=== PATIENT | male | born 1970 | race American Indian/Alaskan Native ===

== ENCOUNTER 2017-02-25 14:21 | Inpatient (IN) | payer MEDICAID ==
[2017-02-25 14:27] VITALS: BMI 33.5
--- NOTE | 2017-02-25 14:58 | ED PDOC ---
Arrival/HPI - General Chief Complaint: Abdominal Pain Time Seen by Provider: 02/25/17 14:51 Historian: Patient - History of Present Illness Narrative History of Present Illness (Text): 02/25/17 14:53 Rehan Rodriguez is a 46 year old male, with a history of hypertension, presents to the emergency department complaining of lower abdominal pressure associated with constipation since waking up today morning. Reports he passed some loose water-like stool in the morning, but did not have a normal bowel movement. States he used a suppository for no relief. Denies any fever, chills, headache, chest pain, shortness of breath, nausea, vomiting, diarrhea, urinary symptoms, or any other complaints at this time. Time/Duration: Other (today morning ) Symptom Onset: Gradual Symptom Course: Unchanged Severity Level: Mild Activities at Onset: Light Past Medical History - Provider Review Nursing Documentation Reviewed: Yes - Infectious Disease Hx of Infectious Diseases: None - Cardiac Hx Cardiac Disorders: Yes Hx Hypertension: Yes (non compliant) - Pulmonary Hx Respiratory Disorders: No - Neurological Hx Neurological Disorder: No - HEENT Hx HEENT Disorder: No - Renal Hx Renal Disorder: No - Endocrine/Metabolic Hx Endocrine Disorders: No - Hematological/Oncological Hx Blood Disorders: No - Integumentary Hx Dermatological Disorder: No - Musculoskeletal/Rheumatological Hx Musculoskeletal Disorders: No - Gastrointestinal Hx Gastrointestinal Disorders: Yes Hx Gastroesophageal Reflux: Yes - Genitourinary/Gynecological Hx Genitourinary Disorders: No - Psychiatric Hx Psychophysiologic Disorder: No Hx Substance Use: No - Anesthesia Hx Anesthesia: No Family/Social History - Physician Review Nursing Documentation Reviewed: Yes Family/Social History: No Known Family HX Smoking Status: Never Smoked Hx Alcohol Use: No Hx Substance Use: No Allergies/Home Meds Allergies/Adverse Reactions: Allergies No Known Allergies Allergy (Verified 02/25/17 14:27) Home Medications: Home Meds Medication Instructions Recorded Confirmed Omeprazole Magnesium [Prilosec] 10 mg PO DAILY 11/06/16 02/25/17 Physical Exam - Physical Exam Narrative Physical Exam (Text): - Review of Systems Constitutional: Normal. absent: Fatigue, Weight Change, Fevers Eyes: Normal ENT: Normal Respiratory: Normal absent: SOB, Cough, Sputum Cardiovascular: Normal absent: Chest pain, Palpitations, Syncope Gastrointestinal: Present: Lower abdominal pressure, Constipation. absent: Diarrhea, Nausea, Vomiting Genitourinary: Normal. absent: Dysuria, Frequency, Hematuria Musculoskeletal: Normal. absent: Arthralgias, Back Pain, Neck Pain Skin: Normal Neurological: Normal absent: Focal Weakness Endocrine: Normal Hemo/Lymphatic: Normal Psychiatric: Normal - Physical exam Patient appears age appropriate, speaking full sentences without difficulty - Systems Exam Head: Present: Atraumatic, Normocephalic Pupils: Present: PERRL Extraocular Muscles: Present: EOMI Conjunctiva: Present: Normal Mouth: Present: Moist Mucous Membranes Neck: Present: Normal Range of Motion. No: MIDLINE TENDERNESS, Paraspinal Tenderness Respiratory/Chest: Present: Clear to Auscultation, Good Air Exchange. No: Respiratory Distress, Accessory Muscle Use, Tachypneic Cardiovascular: Present: Regular Rate and Rhythm, Normal S1, S2, Peripheral Pulses Present. No: Murmurs Abdomen: Present: Normal Bowel Sounds, No: Tenderness, Peritoneal Signs, Rebound, Guarding, Distention Back: Present: Normal Inspection. No: Midline Tenderness, Paraspinal Tenderness Upper Extremity: Present: Normal Inspection. No: Cyanosis, Edema Lower Extremity: Present: Normal Inspection. No: Edema Neurological: Present: GCS=15, Speech Normal, cranial nerves II through XII fully intact with no cerebellar abnormality, neuro-sensory fully intact. No focal neurological deficits. Skin: Present: Warm, Dry, Normal Color. No: Rashes Lymphatic: Present: OX3, NI, NC Psychiatric: Present: Alert, Oriented x 3, Normal Insight, Normal Concentration Vital Signs Reviewed: Yes Vital Signs Temp Pulse Resp BP Pulse Ox 02/25/17 14:23 98.1 F 82 16 163/97 H 97 Temperature: Afebrile Blood Pressure: Hypertensive Pulse: Regular Respiratory Rate: Normal Appearance: Positive for: Well-Appearing, Non-Toxic, Comfortable Pain Distress: None Mental Status: Positive for: Alert and Oriented X 3 Medical Decision Making ED Course and Treatment: 02/25/17 15:04 Impression: A 46 year old male who presents to the emergency department complaining of abdominal pressure and constipation since today morning. On PE, the abdomen is soft, non-distended and non-tender, unremarkable findings. Plan: -- CT abdomen pelvis -- Labs -- Urinalysis -- Reassess and disposition Progress Notes: PROCEDURE: CT Abdomen and Pelvis without intravenous contrast Tack Coverer : Edilberto Giles MD IMPRESSION: 9.4 x 8.8 centimeter central deep pelvic mass with internal necrosis, with mass effect upon the sigmoid colon which is displaced to the right with luminal narrowing associated abundant stool proximally in the sigmoid colon with infiltration of adjacent fat. The mass is of uncertain etiology. This could be related to the prostate gland or perhaps the serosal lining of the sigmoid ( less likely. Correlation with pelvic MRI with contrast is recommended. Numerous hepatic hypodensities favored to represent cysts. The largest measuring roughly 13 millimeters. Recommend further evaluation either with ultrasound or MRI of the liver with and without contrast. 02/25/17 17:[address] Rosa, accepted pt to her service accepted pt to her service pt aware of and agrees with plan - Lab Interpretations Lab Results: 02/25/17 14:50 02/25/17 14:50 Lab Results 02/25/17 14:50: WBC 7.1 D, RBC 5.33, Hgb 16.1, Hct 45.4, MCV 85.2, MCH 30.2, MCHC 35.5, RDW 13.3, Plt Count 226, MPV 9.6, Gran % 74.8 H, Lymph % (Auto) 17.7 L, [place] % (Auto) 6.6 H, Eos % (Auto) 0.8 L, Baso % (Auto) 0.1, Gran # 5.28, Lymph # 1.3, [place] # 0.5, Eos # 0.1, Baso # 0.01, Sodium 139, Potassium 3.7, Chloride 104, Carbon Dioxide 22, Anion Gap 17, BUN 11, Creatinine 1.0, Est GFR ( Amer) > 60, Est GFR (Non-Af Amer) > 60, Random Glucose 88, Calcium 9.4, Total Bilirubin 0.9, AST 58, ALT 64 H, Alkaline Phosphatase 93, Total Protein 8.5 H, Albumin 4.4, Globulin 4.1, Albumin/Globulin Ratio 1.1, Lipase 119, Urine Color Yellow, Urine Appearance Clear, Urine pH 6.0, Ur Specific [place] 1.020, Urine Protein Negative, Urine Glucose (UA) Negative, Urine Ketones Negative, Urine Blood Negative, Urine Nitrate Negative, Urine Bilirubin Negative, Urine Urobilinogen 0.2, Ur Leukocyte Esterase Negative - RAD Interpretation Radiology Orders: 02/25/17 14:51 ABD & PELVIS W/O PO OR IV CONT [CT] Stat Seed Cleaning Machine Operator: Radiologist - Susanibkasia Statement The provider has reviewed the documentation as recorded by the Juan Garza Provider Attestation: All medical record entries made by the Juan were at my direction and personally dictated by me. I have reviewed the chart and agree that the record accurately reflects my personal performance of the history, physical exam, medical decision making, and the department course for this patient. I have also personally directed, reviewed, and agree with the discharge instructions and disposition. Disposition/Present on Arrival - Present on Arrival Any Indicators Present on Arrival: No History of DVT/PE: No History of Uncontrolled Diabetes: No Urinary Catheter: No History of Decub. Ulcer: No History Surgical Site Infection Following: None - Disposition Have Diagnosis and Disposition been Completed?: Yes Diagnosis: Pelvic mass Disposition: HOSPITALIZED Disposition Time: 17:04 Patient Plan: Admission Condition: FAIR
[2017-02-25 15:09] LABS: ADD MANUAL DIFF? NO
[2017-02-25 15:14] LABS: BASO # 0.01 K/mm3 (0.0-2.0); BASO % 0.1 % (0.0-3.0); EOS # 0.1 (0.0-0.7); EOS % 0.8 % (1.5-5.0); GRAN # 5.28 (1.4-6.5); GRAN % 74.8 % (50.0-68.0); HEMATOCRIT 45.4 % (42.0-52.0); LYMPH # 1.3 (1.2-3.4); LYMPH % 17.7 % (22.0-35.0); MEAN CELL VOLUME 85.2 fL (80.0-105.0); MEAN CORPUSCULAR HEMOGLOBIN 30.2 pg (25.0-35.0); MEAN CORPUSCULAR HGB CONC 35.5 g/dl (31.0-37.0); MEAN PLATELET VOLUME 9.6 fl (7.0-11.0); MONO # 0.5 (0.1-0.6); MONO % 6.6 % (1.0-6.0); PLATELET COUNT 226 10^3/uL (120.0-450.0); RED CELL DISTRIBUTION WIDTH 13.3 % (11.5-14.5); WHITE BLOOD COUNT 7.1 10^3/ul (4.5-11.0)
[2017-02-25 15:25] LABS: ALB/GLOB RATIO 1.1 (1.1-1.8); ALKALINE PHOSPHATASE 93 U/L (38-133); ALT/SGPT 64 U/L (7-56); AST/SGOT 58 U/L (15-59); BILIRUBIN,TOTAL 0.9 mg/dL (0.2-1.3); BLOOD UREA NITROGEN 11 mg/dL (7-21); CALCIUM 9.4 mg/dL (8.4-10.5); CARBON DIOXIDE 22 mmol/L (21-33); CHLORIDE 104 mmol/L (98-107); GFR AFRICAN-AMERICAN > 60; GLUCOSE,RANDOM 88 mg/dL (70-110); LIPASE 119 U/L (23-300); POTASSIUM 3.7 mmol/L (3.6-5.0); SODIUM 139 mmol/L (132-148); TOTAL PROTEIN 8.5 g/dL (5.8-8.3)
[2017-02-25 15:30] LABS: URINE BILIRUBIN NEGATIVE (NEGATIVE); URINE BLOOD NEGATIVE (NEGATIVE); URINE GLUCOSE (UA) NEGATIVE (NEGATIVE); URINE KETONE NEGATIVE (NEGATIVE); URINE LEUKOCYTE ESTERASE NEGATIVE Leu/uL (NEGATIVE); URINE PROTEIN NEGATIVE mg/dL (<30 mg/dL); URINE UROBILINOGEN 0.2 E.U./dL (<1 E.U./dL)
[2017-02-25 15:35] LABS: URINE APPEARANCE CLEAR (CLEAR); URINE COLOR YELLOW (YELLOW)
--- NOTE | 2017-02-25 16:40 | CT ---
PROCEDURE: CT Abdomen and Pelvis without intravenous contrast HISTORY: constipation, lower abd pressure COMPARISON: None. TECHNIQUE: Technique. Contrast Dose: Radiation dose: Total exam DLP = 756 mGy-cm. This CT exam was performed using one or more of the following dose reduction techniques: Automated exposure control, adjustment of the mA and/or kV according to patient size, and/or use of iterative reconstruction technique. FINDINGS: LOWER THORAX: Unremarkable. LIVER: Numerous hepatic hypodensities favored to represent cysts. The largest measuring roughly 13 millimeters. Recommend further evaluation either with ultrasound or MRI of the liver with and without contrast. GALLBLADDER AND BILE DUCTS: Unremarkable. PANCREAS: Unremarkable. No gross lesion or ductal dilatation. SPLEEN: Unremarkable. ADRENALS: Unremarkable. No mass. KIDNEYS AND URETERS: Unremarkable. No hydronephrosis. No solid mass. VASCULATURE: Unremarkable. No aortic aneurysm. BOWEL: No bowel obstruction,, there is abundant stool in the sigmoid colon with infiltration of the adjacent fat. There is severe narrowing of the rectosigmoid junction secondary to an extrinsic mass in the central pelvis with internal necrosis measuring 9.4 x 8.8 centimeters. The rectosigmoid junction is displaced to the right of this mass. APPENDIX: Unremarkable. Normal appendix. PERITONEUM: Unremarkable. No free fluid. No free air. LYMPH NODES: Unremarkable. No enlarged lymph nodes. BLADDER: Unremarkable. REPRODUCTIVE: Unremarkable. BONES: No acute fracture. OTHER FINDINGS: None. IMPRESSION: 9.4 x 8.8 centimeter central deep pelvic mass with internal necrosis, with mass effect upon the sigmoid colon which is displaced to the right with luminal narrowing associated abundant stool proximally in the sigmoid colon with infiltration of adjacent fat. The mass is of uncertain etiology. This could be related to the prostate gland or perhaps the serosal lining of the sigmoid (less likely. Correlation with pelvic MRI with contrast is recommended. Numerous hepatic hypodensities favored to represent cysts. The largest measuring roughly 13 millimeters. Recommend further evaluation either with ultrasound or MRI of the liver with and without contrast.
[2017-02-25] MEDS ORDERED: POLYETHYLENE GLYCOL 3350 17 GM/Dose PACKET PO STA (17:42)
--- NOTE | 2017-02-25 17:56 | CP.PCM.HP ---
<Franny Mccallum - Last Filed: 02/25/17 17:49> History of Present Illness - History of Present Illness History of Present Illness: CC: abdominal mass 46 year old male with past medical history of HTN and GERD presents to ED with abdominal fullness and constipation that started this morning. Patient states that he woke up this morning felt a fullness in his suprapupic and lower abdomen. Patient tried to have a BM this morning but was unable. He passed some mucousy discharge but no stool. Patient also tried an enema but only had very little water stool come out. Patient states that he has regular bowel movements. For last couple of months, he has been going every other day. Patient's last bowel movement was 2 days ago, normal in nature. He is passing gas. Patient denies having any dysuria or hematuria. Patient does c/o of increased urinary frequency and nocturia. Abd/pelvis Ct done in ED showed a 9.4x8.8 cm central deep pelvic mass with internal necrosis. Pt denies having any CP, SOB, abd pain, N/V, weight changes, fatigue. PMHx: stated above Sx: denies Medications: Prilosec 10 mg po qd prn Social: denies tob, ETOH or drug use PMD: Dr. Pearl Fhx: father prostate ca. DM, CAD Present on Admission - Present on Admission Any Indicators Present on Admission: No Review of Systems - Review of Systems All systems: reviewed and no additional remarkable complaints except Past Patient History - Infectious Disease Hx of Infectious Diseases: None - Past Social History Smoking Status: Never Smoked Chewing Tobacco Use: No Cigar Use: No Alcohol: None Drugs: Denies - CARDIAC Hx Cardiac Disorders: Yes Hx Hypertension: Yes (non compliant) - PULMONARY Hx Respiratory Disorders: No - NEUROLOGICAL Hx Neurological Disorder: No - HEENT Hx HEENT Problems: No - RENAL Hx Chronic Kidney Disease: No - ENDOCRINE/METABOLIC Hx Endocrine Disorders: No - HEMATOLOGICAL/ONCOLOGICAL Hx Blood Disorders: No - INTEGUMENTARY Hx Dermatological Problems: No - MUSCULOSKELETAL/RHEUMATOLOGICAL Hx Musculoskeletal Disorders: No - GASTROINTESTINAL Hx Gastrointestinal Disorders: Yes Hx Gastroesophageal Reflux: Yes - GENITOURINARY/GYNECOLOGICAL Hx Genitourinary Disorders: No - PSYCHIATRIC Hx Psychophysiologic Disorder: No Hx Substance Use: No - SURGICAL HISTORY Hx Surgeries: No - ANESTHESIA Hx Anesthesia: No Meds Home Medications: Home Medication List Medication Instructions Recorded Confirmed Type Docusate [Colace] 100 mg PO BID #60 cap 02/28/17 Rx amLODIPine [Norvasc] 10 mg PO DAILY #30 tab 02/28/17 Rx Allergies/Adverse Reactions: Allergies Allergy/AdvReac Type Severity Reaction Status Date / Time No Known Allergies Allergy Verified 02/25/17 14:27 Physical Exam - Constitutional Appears: Non-toxic, No Acute Distress - Head Exam Head Exam: ATRAUMATIC, NORMOCEPHALIC - Eye Exam Eye Exam: EOMI, PERRL - ENT Exam ENT Exam: Mucous Membranes Moist - Respiratory Exam Respiratory Exam: Clear to Auscultation Bilateral, NORMAL BREATHING PATTERN. absent: Rales, Rhonchi, Wheezes - Cardiovascular Exam Cardiovascular Exam: REGULAR RHYTHM, +S1, +S2. absent: Diastolic murmur, Gallop , Rubs, Systolic Murmur - GI/Abdominal Exam GI & Abdominal Exam: Normal Bowel Sounds, Soft. absent: Distended, Firm, Guarding, Organomegaly, Rigid, Tenderness - Extremities Exam Extremities exam: Negative for: pedal edema, tenderness - Neurological Exam Neurological exam: Alert, Oriented x3 - Psychiatric Exam Psychiatric exam: Normal Affect, Normal Mood - Skin Skin Exam: Dry, Intact, Normal Color, Warm Results - Vital Signs Recent Vital Signs: Last Vital Signs Temp 98.1 F 02/25/17 14:23 Pulse 82 02/25/17 14:23 Resp 16 02/25/17 14:23 BP 163/97 H 02/25/17 14:23 Pulse Ox 97 02/25/17 14:23 - Labs Result Diagrams: 02/25/17 14:50 02/25/17 14:50 Labs: Laboratory Results - last 24 hr 02/25/17 14:50 WBC 7.1 D RBC 5.33 Hgb 16.1 Hct 45.4 MCV 85.2 MCH 30.2 MCHC 35.5 RDW 13.3 Plt Count 226 MPV 9.6 Gran % 74.8 H Lymph % (Auto) 17.7 L [place] % (Auto) 6.6 H Eos % (Auto) 0.8 L Baso % (Auto) 0.1 Gran # 5.28 Lymph # 1.3 [place] # 0.5 Eos # 0.1 Baso # 0.01 Sodium 139 Potassium 3.7 Chloride 104 Carbon Dioxide 22 Anion Gap 17 BUN 11 Creatinine 1.0 Est GFR ( Amer) > 60 Est GFR (Non-Af Amer) > 60 Random Glucose 88 Calcium 9.4 Total Bilirubin 0.9 AST 58 ALT 64 H Alkaline Phosphatase 93 Total Protein 8.5 H Albumin 4.4 Globulin 4.1 Albumin/Globulin Ratio 1.1 Lipase 119 Urine Color Yellow Urine Appearance Clear Urine pH 6.0 Ur Specific [place] 1.020 Urine Protein Negative Urine Glucose (UA) Negative Urine Ketones Negative Urine Blood Negative Urine Nitrate Negative Urine Bilirubin Negative Urine Urobilinogen 0.2 Ur Leukocyte Esterase Negative Assessment & Plan - Assessment and Plan (Free Text) Assessment: 46 year old male with past medical history of HTN and GERD is admitted for central deep pelvic mass 9.4x8.[address] report is as stated: central deep pelvic mass with internal area of necrosis, mass effect upon sigmoid colon displaced to right with luminal narrowing with abundant stool in proximal sigmoid; hepatic hypodensities represent cyst with largest being 13 mm. Blood work shows normal LFTs and lipase. UA is negative. 1. Pelvic mass - Will get MRI with/without contrast of abd and pelvis. - Will consult GI, Dr. Perez - Will check PSA, CEA and CA 19-9 tumor markers for prostate and colon cancer, respectively - Colace and miralax for constipation - Tylenol prn for pain - Zofran prn for nausea - Liquid diet - will check stool occult - Will check EKG and CXR 2. HTN - Norvasc 5 mg PO qd 3. GERD - protonix IVP qd 4. Prophylaxis - SCDS Case discussed with attending Dr. Rosa - Date & Time Date: 02/25/17 Time: 17:57 <Aster Rosa - Last Filed: 03/04/17 11:07> Results - Vital Signs Recent Vital Signs: Last Vital Signs Temp 98.3 F 02/28/17 16:00 Pulse 66 02/28/17 16:00 Resp 20 02/28/17 16:00 BP 137/65 02/28/17 16:00 Pulse Ox 96 02/28/17 16:00 - Labs Result Diagrams: 02/28/17 07:30 02/28/17 07:30 Attending/Attestation - Attestation I have personally seen and examined this patient.: Yes I have fully participated in the care of the patient.: Yes I have reviewed all pertinent clinical information: Yes Notes (Text): 03/04/17 10:48 Attending note: patient is a 46 year old male with past medical history of HTN and GERD presents to ED with abdominal fullness and constipation.Patient states that he woke up this morning felt a fullness in his suprapupic and lower abdomen. Patient had constipation for the week. Patient does not follow up with PMD regularly. CT showed pelvic mass with necrosis possibly from prostate vs colon. MRI ordered. GI evaluation requested. Reviewed the CT scan with IR for possible biopsy tomorrow. upon discharge patient will follow up with Dr. Pearl. 03/04/17 11:04 03/04/17 11:07
--- NOTE | 2017-02-26 07:55 | CP.PCM.CON ---
<Aicha Hull - Last Filed: 02/26/17 12:12> History of Present Illness - History of Present Illness History of Present Illness: Gastroenterology Fellow/PGY4 Consult Note 46 year old male with history of Hypertension and Constipation presenting with abdominal pain. Patient describes attempt to have a bowel movement without relief leading to severe bilateral lower abdomen pain associated with bloating , pain scale 9/10. He attempted to use a Dulcolax suppository resulting in minimal watery stools with small particles. He notes last bowel movement being two days ago with normal bowel habits of every two to three days and note of intermittent hard stools with straining. He denies recent travel, sick contacts , and last antibiotics in November ER visit for concern of candice an STD with negative G&C. He jokes that he developed pain and constipation due to all the donuts he ate last week. Denies fever, chills, sweats, loss of appetite, weight loss, melena, hematochezia, diarrhea, nausea, vomiting, hematemesis, indigestion, or heartburn. He notes he stopped taking prescribed blood pressure medicine for the last two months due to causing leg swelling. No prior EGD or colonoscopy. Family- Father- believes father had a prostate issue- unsure if cancer; denies colon cancer, stomach cancer Social- notes social tobacco, alcohol, and marijuana use Surgery-stitches to lip, right forehead lipoma removal Review of Systems - Review of Systems Review of Systems: A 12-point review of systems negative except for as above Past Patient History - Infectious Disease Hx of Infectious Diseases: None - Past Social History Smoking Status: Never Smoked - CARDIAC Hx Cardiac Disorders: Yes Hx Hypertension: Yes (non compliant) - PULMONARY Hx Respiratory Disorders: No - NEUROLOGICAL Hx Neurological Disorder: No - HEENT Hx HEENT Problems: No - RENAL Hx Chronic Kidney Disease: No - ENDOCRINE/METABOLIC Hx Endocrine Disorders: No - HEMATOLOGICAL/ONCOLOGICAL Hx Blood Disorders: No - INTEGUMENTARY Hx Dermatological Problems: No - MUSCULOSKELETAL/RHEUMATOLOGICAL Hx Falls: No - GASTROINTESTINAL Hx Gastrointestinal Disorders: Yes Hx Gastroesophageal Reflux: Yes - GENITOURINARY/GYNECOLOGICAL Hx Genitourinary Disorders: No - PSYCHIATRIC Hx Psychophysiologic Disorder: No - SURGICAL HISTORY Hx Surgeries: No - ANESTHESIA Hx Anesthesia: No Meds Allergies/Adverse Reactions: Allergies Allergy/AdvReac Type Severity Reaction Status Date / Time No Known Allergies Allergy Verified 02/25/17 14:27 - Medications Medications: Current Medications Acetaminophen (Tylenol 325mg Tab) 650 mg PO Q6H PRN PRN Reason: Fever >100.4 F Amlodipine Besylate (Norvasc) 10 mg PO DAILY [facility] Last Admin: 02/25/17 18:23 Dose: 10 mg Docusate Sodium (Colace) 100 mg PO BID [facility] Last Admin: 02/25/17 18:23 Dose: 100 mg Heparin Sodium (Porcine) (Heparin) 5,000 units SC Q12 [facility] PRN Reason: Protocol Last Admin: 02/25/17 22:56 Dose: Not Given Ondansetron HCl (Zofran Inj) 4 mg IVP Q4H PRN PRN Reason: Nausea/Vomiting Pantoprazole Sodium (Protonix Inj) 40 mg IVP DAILY [facility] Last Admin: 02/25/17 18:23 Dose: 40 mg Polyethylene Glycol (Miralax) 17 gm PO BID [facility] Physical Exam - Constitutional Appears: Non-toxic, No Acute Distress - Head Exam Head Exam: ATRAUMATIC, NORMOCEPHALIC - Eye Exam Eye Exam: EOMI, PERRL Pupil Exam: PERRL. absent: Miosis, Mydriatic - ENT Exam ENT Exam: Mucous Membranes Moist, Normal Oropharynx - Neck Exam Neck exam: Positive for: Full Rom, Normal Inspection - Respiratory Exam Respiratory Exam: Clear to Auscultation Bilateral. absent: Rales, Rhonchi, Wheezes - Cardiovascular Exam Cardiovascular Exam: RRR, +S1, +S2. absent: Gallop, Rubs - GI/Abdominal Exam GI & Abdominal Exam: Mass, Normal Bowel Sounds, Soft. absent: Distended, Firm, Guarding, Rebound, Rigid, Tenderness Additional comments: discomfort to palpation suprapubic and LLQ - Extremities Exam Extremities exam: Positive for: full ROM. Negative for: pedal edema - Neurological Exam Neurological exam: Alert - Psychiatric Exam Psychiatric exam: Normal Affect, Normal Mood - Skin Skin Exam: Dry, Intact, Normal Color, Warm Results - Vital Signs Recent Vital Signs: Last Vital Signs Temp 98.1 F 02/25/17 14:23 Pulse 82 02/25/17 14:23 Resp 18 02/25/17 19:02 BP 170/105 H 02/25/17 19:02 Pulse Ox 97 02/25/17 14:23 - Labs Result Diagrams: 02/26/17 07:30 02/26/17 07:30 Assessment & Plan - Assessment and Plan (Free Text) Assessment: 46 year old male with history of Hypertension and Constipation presenting with abdominal pain. CT A/P without contrast showed a 9.4 x8.8cm extrinsic central pelvic mass causing severe narrowing and displacement of rectosigmoid junction. No prior EGD or colonoscopy. Plan: >await MRI A/P with/without contrast >ordered Hepatitis panel and AFP >normal PSA and CEA >clear liquids >will benefit from sigmoidoscopy/EUS with FNA -will discuss inpatient versus outpatient elective scheduling based on MRI results >recommend surgery consult >further recommendations based on clinical course <Eron Bhatt - Last Filed: 02/26/17 12:27> Meds - Medications Medications: Current Medications Acetaminophen (Tylenol 325mg Tab) 650 mg PO Q6H PRN PRN Reason: Fever >100.4 F Amlodipine Besylate (Norvasc) 10 mg PO DAILY [facility] Last Admin: 02/26/17 10:14 Dose: 10 mg Docusate Sodium (Colace) 100 mg PO BID [facility] Last Admin: 02/26/17 10:11 Dose: 100 mg Heparin Sodium (Porcine) (Heparin) 5,000 units SC Q12 [facility] PRN Reason: Protocol Last Admin: 02/26/17 10:15 Dose: 5,000 units Ondansetron HCl (Zofran Inj) 4 mg IVP Q4H PRN PRN Reason: Nausea/Vomiting Pantoprazole Sodium (Protonix Inj) 40 mg IVP DAILY [facility] Last Admin: 02/26/17 10:16 Dose: 40 mg Polyethylene Glycol (Miralax) 17 gm PO BID [facility] Last Admin: 02/26/17 10:16 Dose: 17 gm Results - Vital Signs Recent Vital Signs: Last Vital Signs Temp 97.8 F 02/26/17 07:30 Pulse 61 02/26/17 10:14 Resp 16 02/26/17 07:30 BP 132/81 02/26/17 10:14 Pulse Ox 98 02/26/17 07:30 - Labs Result Diagrams: 02/26/17 07:30 02/26/17 07:30 Labs: Laboratory Results - last 24 hr 02/26/17 07:30 WBC 5.0 D RBC 4.86 Hgb 14.5 Hct 41.8 L MCV 86.0 MCH 29.8 MCHC 34.7 RDW 13.6 Plt Count 202 MPV 9.8 Sodium 139 Potassium 4.2 Chloride 104 Carbon Dioxide 28 Anion Gap 11 BUN 10 Creatinine 1.1 Est GFR ( Amer) > 60 Est GFR (Non-Af Amer) > 60 Random Glucose 88 Calcium 9.0 Total Bilirubin 1.0 AST 44 ALT 53 Alkaline Phosphatase 66 Total Protein 7.0 Albumin 3.8 Globulin 3.3 Albumin/Globulin Ratio 1.2 Carcinoembryonic Ag 2.0 Attending/Attestation - Attestation I have personally seen and examined this patient.: Yes I have fully participated in the care of the patient.: Yes I have reviewed all pertinent clinical information: Yes Notes (Text): 02/26/17 12:24 46 year old male who presents with abdominal pain and constipation, found to have a pelvic mass and liver lesions. 1. Pelvic mass 2. Liver lesions Plan: -appears to have a necrotic soft tissue mass in the pelvis compressing the sigmoid colon -liver lesions, may be cysts -agree with MRI, awaiting results -CT reviewed -recommend bowel regimen with miralax -recommend surgical evaluation as the lesion will likely need to be removed -sigmoidoscopy with EUS and fine needle biopsy would be possible to get tissue for diagnosis
[2017-02-26 07:57] LABS: HEMATOCRIT 41.8 % (42.0-52.0); MEAN CORPUSCULAR HEMOGLOBIN 29.8 pg (25.0-35.0); MEAN CORPUSCULAR HGB CONC 34.7 g/dl (31.0-37.0); MEAN PLATELET VOLUME 9.8 fl (7.0-11.0); RED CELL DISTRIBUTION WIDTH 13.6 % (11.5-14.5)
--- NOTE | 2017-02-26 08:29 | RAD ---
HISTORY: r/o pneumonia COMPARISON: No prior. TECHNIQUE: Chest PA and lateral FINDINGS: LUNGS: No active pulmonary disease. PLEURA: No significant pleural effusion identified. No pneumothorax apparent. CARDIOVASCULAR: Normal. OSSEOUS STRUCTURES: No significant abnormalities. VISUALIZED UPPER ABDOMEN: Normal. OTHER FINDINGS: None. IMPRESSION: No active disease.
[2017-02-26 08:52] LABS: ALB/GLOB RATIO 1.2 (1.1-1.8); ALKALINE PHOSPHATASE 66 U/L (38-133); ALT/SGPT 53 U/L (7-56); AST/SGOT 44 U/L (15-59); BLOOD UREA NITROGEN 10 mg/dL (7-21); CARBON DIOXIDE 28 mmol/L (21-33); CHLORIDE 104 mmol/L (95-110); GFR AFRICAN-AMERICAN > 60; GLUCOSE,RANDOM 88 mg/dL (70-110); POTASSIUM 4.2 mmol/L (3.6-5.0); SODIUM 139 mmol/L (132-148)
[2017-02-26] MEDS ORDERED: Gadodiamide 287 MG/ML VIAL (15ML) IV ONE (09:21)
[2017-02-26] MEDS: POLYETHYLENE GLYCOL 3350 17 GM/Dose PACKET PO SCH ×2 (10:16→17:30)
--- NOTE | 2017-02-26 10:16 | CARD ---
APPROVED REPORT EKG Measurement Heart [id number] <Conclusion> Marked sinus bradycardia Inferior infarct, age undetermined T wave abnormality, consider lateral ischemia Abnormal ECG
--- NOTE | 2017-02-26 11:56 | CP.PCM.PN ---
<Franny Mccallum - Last Filed: 02/26/17 11:50> Subjective - Date & Time of Evaluation Date of Evaluation: 02/26/17 Time of Evaluation: 11:50 - Subjective Subjective: HOSPITALIST PROGRESS NOTE Pt is seen and examined at bedside. No acute events overnight. Pt states he had 1 BM last night that was loose and small. Pt denies having abd pain, N/V, dysuria, CP, SOB. tolerating CLD. Objective - Vital Signs/Intake and Output Vital Signs (last 24 hours): Temp Pulse Resp BP Pulse Ox 97.8 F 61 16 132/81 98 02/26/17 07:30 02/26/17 10:14 02/26/17 07:30 02/26/17 10:14 02/26/17 07:30 Intake and Output: 02/26/17 02/26/17 06:59 18:59 Intake Total 1020 Balance 1020 - Medications Medications: Current Medications Acetaminophen (Tylenol 325mg Tab) 650 mg PO Q6H PRN PRN Reason: Fever >100.4 F Amlodipine Besylate (Norvasc) 10 mg PO DAILY [facility] Last Admin: 02/26/17 10:14 Dose: 10 mg Docusate Sodium (Colace) 100 mg PO BID [facility] Last Admin: 02/26/17 10:11 Dose: 100 mg Heparin Sodium (Porcine) (Heparin) 5,000 units SC Q12 [facility] PRN Reason: Protocol Last Admin: 02/26/17 10:15 Dose: 5,000 units Ondansetron HCl (Zofran Inj) 4 mg IVP Q4H PRN PRN Reason: Nausea/Vomiting Pantoprazole Sodium (Protonix Inj) 40 mg IVP DAILY [facility] Last Admin: 02/26/17 10:16 Dose: 40 mg Polyethylene Glycol (Miralax) 17 gm PO BID [facility] Last Admin: 02/26/17 10:16 Dose: 17 gm - Labs Labs: 02/26/17 07:30 02/26/17 07:30 - Constitutional Appears: Non-toxic, No Acute Distress - Head Exam Head Exam: ATRAUMATIC - Eye Exam Eye Exam: EOMI Pupil Exam: PERRL - ENT Exam ENT Exam: Mucous Membranes Moist - Respiratory Exam Respiratory Exam: Clear to Ausculation Bilateral, NORMAL BREATHING PATTERN. absent: Rales, Rhonchi, Wheezes - Cardiovascular Exam Cardiovascular Exam: REGULAR RHYTHM, +S1, +S2. absent: Gallop, Rubs, Murmur - GI/Abdominal Exam GI & Abdominal Exam: Soft, Normal Bowel Sounds. absent: Distended, Firm, Guarding, Rigid, Tenderness - Extremities Exam Extremities Exam: Full ROM. absent: Calf Tenderness, Pedal Edema - Neurological Exam Neurological Exam: Alert, Awake, Oriented x3 - Psychiatric Exam Psychiatric exam: Normal Affect, Normal Mood - Skin Skin Exam: Dry, Intact, Normal Color, Warm Assessment and Plan - Assessment and Plan (Free Text) Assessment: 46 year old male with past medical history of HTN and GERD is admitted for central deep pelvic mass 9.4x8.[address] report 02/25 as stated: central deep pelvic mass with internal area of necrosis, mass effect upon sigmoid colon displaced to right with luminal narrowing with abundant stool in proximal sigmoid; hepatic hypodensities represent cyst with largest being 13 mm. Blood work shows normal LFTs and lipase. UA is negative. 1. Pelvic mass - MRI with/without contrast of abd and pelvis pending report. - GI, Dr. Lewis consulted. Will schedule colonoscopy after MRI report is back - PSA and CEA are normal. CA 19-9 pending - Colace and miralax for constipation - Tylenol prn for pain - Zofran prn for nausea - Liquid diet - will check stool occult - Will check EKG and CXR 2. Hepatic cysts - Hepatitis panel ordered - MRI abd/pelvis pending 3. HTN - Norvasc 5 mg PO qd 4. GERD - protonix IVP qd 5. Prophylaxis - SCDS Case discussed with attending Dr. Dumont <Lizbeth Dumont B - Last Filed: 02/27/17 22:37> Objective - Vital Signs/Intake and Output Vital Signs (last 24 hours): Temp Pulse Resp BP Pulse Ox 98.3 F 54 L 19 122/78 96 02/27/17 16:00 02/27/17 16:00 02/27/17 16:00 02/27/17 16:00 02/27/17 16:00 Intake and Output: 02/27/17 02/28/17 18:59 06:59 Intake Total 1540 Balance 1540 - Medications Medications: Current Medications Acetaminophen (Tylenol 325mg Tab) 650 mg PO Q6H PRN PRN Reason: Fever >100.4 F Amlodipine Besylate (Norvasc) 10 mg PO DAILY [facility] Last Admin: 02/27/17 10:08 Dose: 10 mg Docusate Sodium (Colace) 100 mg PO BID [facility] Last Admin: 02/27/17 17:13 Dose: 100 mg Ondansetron HCl (Zofran Inj) 4 mg IVP Q4H PRN PRN Reason: Nausea/Vomiting Pantoprazole Sodium (Protonix Inj) 40 mg IVP DAILY [facility] Last Admin: 02/27/17 10:08 Dose: 40 mg Polyethylene Glycol (Miralax) 17 gm PO BID [facility] Last Admin: 02/27/17 17:13 Dose: 17 gm - Labs Labs: 02/27/17 07:36 02/27/17 07:36 PT 10.9 Seconds (9.9-11.8) 02/27/17 07:36 INR 1.01 (0.93-1.08) 02/27/17 07:36 APTT 29.7 Seconds (23.7-30.8) 02/27/17 07:36 Attending/Attestation - Attestation I have personally seen and examined this patient.: Yes I have fully participated in the care of the patient.: Yes I have reviewed all pertinent clinical information, including history, physical exam and plan: Yes Notes (Text): I have seen and examined patient with the resident. This is 46 year old male with history of HTN, GERD who got admitted for evaluation of abdominal pain and constipation and found to have pelvic mass on CT scan. Blood work was reviewed. MRI pelvis ordered. CEA, CA19-9 and psa ordered. Discussed with the patient in detail. Constipation has resolved now. ALso report urgency of urination without hesitancy and normal flow for the past couple of months. GI on board. Dr Lizbeth Dumont
[2017-02-26 12:29] LABS: CA 19-9 4.9 U/mL (0-37)
--- NOTE | 2017-02-26 12:46 | MRI ---
PROCEDURE: MRI Abdomen with and without contrast HISTORY: Rule out hepatic metastases COMPARISON: CT 02/25/2017. TECHNIQUE: Multisequence, multiplanar MR images of the abdomen with and without gadolinium contrast enhancement. 15 cc of Omniscan FINDINGS: LIVER: Multiple small nonenhancing simple cysts are seen throughout the liver. There are no solid lesions identified. GALLBLADDER: Unremarkable. SPLEEN: Unremarkable. PANCREAS: Unremarkable. ADRENALS: Unremarkable. KIDNEYS: Unremarkable. AORTA: No aneurysm. ASCITES: None. PERITONEUM: Unremarkable. LYMPH NODES: Unremarkable. OTHER FINDINGS: None. IMPRESSION: Multiple small hepatic cysts. No evidence of solid lesion
--- NOTE | 2017-02-26 12:59 | MRI ---
PROCEDURE: MRI pelvis with and without contrast HISTORY: pelvic mass COMPARISON: CT 02/25/2017. TECHNIQUE: Multiplanar, multi sequence MR images of the pelvis were obtained following administration of intravenous gadolinium contrast. 15 cc of Omniscan were injected FINDINGS: BOWEL: Partially visualized rectosigmoid colon is grossly unremarkable. LYMPH NODES: No lymphadenopathy. BLADDER: Unremarkable. PROSTATE: There is marked enlargement of the prostate with central necrotic area. The prostate measures 10.4 cm height by 8.4 cm AP as seen on sagittal image 15 series 3. The prostate measures 8.9 cm wide image 23 series 3. There is complete loss of the normal architecture. The peripheral zones cannot be identified. The bladder is markedly flattened and displaced anteriorly. The seminal vesicles can be seen between the mass and the bladder on sagittal image 15 series 3. This is a highly unusual pattern of tumor growth. There is diffuse enhancement of the lesion with the exception of the central necrotic portion. The findings are unusual. A prostate malignancy should be considered. Urologic follow-up recommended FREE FLUID: None. PELVIC BONES: Grossly unremarkable. OTHER FINDINGS: None. IMPRESSION: Large mass arising from the prostate with anterior displacement of the bladder and seminal vesicles.
[2017-02-26] MEDS ORDERED: Sodium Chloride 0.45% 1,000 ML IV SCH (15:00)
--- NOTE | 2017-02-27 08:02 | CP.PCM.PN ---
<Franny Mccallum - Last Filed: 02/27/17 10:10> Subjective - Date & Time of Evaluation Date of Evaluation: 02/27/17 Time of Evaluation: 07:59 - Subjective Subjective: HOSPITALIST PROGRESS NOTE Pt is seen and examined at bedside. No acute events overnight. Pt had 1 BM yesterday well formed and is passing gas. Patient states that he had some pain in his rectal area while having the BM. Denies having any dysuria, CP, SOB, abd pain, N/V/D/C. Tolerating liquid diet. Objective - Vital Signs/Intake and Output Vital Signs (last 24 hours): Temp Pulse Resp BP Pulse Ox 97.9 F 48 L 16 132/89 99 02/26/17 16:00 02/26/17 16:00 02/26/17 16:00 02/26/17 16:00 02/26/17 16:00 Intake and Output: 02/27/17 02/27/17 06:59 18:59 Intake Total 840 Balance 840 - Medications Medications: Current Medications Acetaminophen (Tylenol 325mg Tab) 650 mg PO Q6H PRN PRN Reason: Fever >100.4 F Amlodipine Besylate (Norvasc) 10 mg PO DAILY [facility] Last Admin: 02/26/17 10:14 Dose: 10 mg Docusate Sodium (Colace) 100 mg PO BID [facility] Last Admin: 02/26/17 17:30 Dose: 100 mg Sodium Chloride (Sodium Chloride 0.45%) 1,000 mls @ 80 mls/hr IV .[id number] [facility] Stop: 02/27/17 18:00 Last Admin: 02/26/17 17:00 Dose: 80 mls/hr Ondansetron HCl (Zofran Inj) 4 mg IVP Q4H PRN PRN Reason: Nausea/Vomiting Pantoprazole Sodium (Protonix Inj) 40 mg IVP DAILY [facility] Last Admin: 02/26/17 10:16 Dose: 40 mg Polyethylene Glycol (Miralax) 17 gm PO BID [facility] Last Admin: 02/26/17 17:30 Dose: 17 gm - Labs Labs: 02/26/17 07:30 02/26/17 07:30 - Constitutional Appears: Non-toxic, No Acute Distress - Head Exam Head Exam: ATRAUMATIC - Eye Exam Eye Exam: EOMI - ENT Exam ENT Exam: Mucous Membranes Moist - Respiratory Exam Respiratory Exam: Clear to Ausculation Bilateral. absent: Rales, Rhonchi, Wheezes - Cardiovascular Exam Cardiovascular Exam: REGULAR RHYTHM, +S1, +S2. absent: Gallop, Rubs, Murmur - GI/Abdominal Exam GI & Abdominal Exam: Soft, Normal Bowel Sounds. absent: Distended, Firm, Guarding, Rigid - Extremities Exam Extremities Exam: absent: Pedal Edema, Tenderness - Neurological Exam Neurological Exam: Alert, Awake, Normal Gait, Oriented x3 - Psychiatric Exam Psychiatric exam: Normal Affect, Normal Mood - Skin Skin Exam: Dry, Intact, Normal Color, Warm Assessment and Plan - Assessment and Plan (Free Text) Assessment: 46 year old male with past medical history of HTN and GERD is admitted for central deep pelvic mass 9.4x8.[address] report 02/25 as stated: central deep pelvic mass with internal area of necrosis, mass effect upon sigmoid colon displaced to right with luminal narrowing with abundant stool in proximal sigmoid; hepatic hypodensities represent cyst with largest being 13 mm. Blood work shows normal LFTs and lipase. UA is negative. MRI of abd/pelvis done yesterday showed simple hepatic cysts, and prostate mass with anterior displacement of bladder and seminal vesicles 1. Pelvic mass - MRI shows prostate mass. - Consulted urology, Dr. Muñoz. - GI, Dr. Lewis consulted. Will schedule colonoscopy after MRI report is back - PSA, CEA, CA 19-9 and AFP are normal - Colace for constipation - Tylenol prn for pain - Zofran prn for nausea - Liquid diet - will check stool occult - Will check EKG and CXR 2. Hepatic cysts - Hepatitis panel ordered - MRI abd/pelvis pending 3. HTN - Norvasc 10 mg PO qd 4. GERD - protonix IVP qd 5. Prophylaxis - SCDS Case discussed with attending Dr. Dumont <Lizbeth Dumont - Last Filed: 02/27/17 22:45> Objective - Vital Signs/Intake and Output Vital Signs (last 24 hours): Temp Pulse Resp BP Pulse Ox 98.3 F 54 L 19 122/78 96 02/27/17 16:00 02/27/17 16:00 02/27/17 16:00 02/27/17 16:00 02/27/17 16:00 Intake and Output: 02/27/17 02/28/17 18:59 06:59 Intake Total 1540 Balance 1540 - Medications Medications: Current Medications Acetaminophen (Tylenol 325mg Tab) 650 mg PO Q6H PRN PRN Reason: Fever >100.4 F Amlodipine Besylate (Norvasc) 10 mg PO DAILY [facility] Last Admin: 02/27/17 10:08 Dose: 10 mg Docusate Sodium (Colace) 100 mg PO BID [facility] Last Admin: 02/27/17 17:13 Dose: 100 mg Ondansetron HCl (Zofran Inj) 4 mg IVP Q4H PRN PRN Reason: Nausea/Vomiting Pantoprazole Sodium (Protonix Inj) 40 mg IVP DAILY [facility] Last Admin: 02/27/17 10:08 Dose: 40 mg Polyethylene Glycol (Miralax) 17 gm PO BID [facility] Last Admin: 02/27/17 17:13 Dose: 17 gm - Labs Labs: 02/27/17 07:36 02/27/17 07:36 PT 10.9 Seconds (9.9-11.8) 02/27/17 07:36 INR 1.01 (0.93-1.08) 02/27/17 07:36 APTT 29.7 Seconds (23.7-30.8) 02/27/17 07:36 Attending/Attestation - Attestation I have personally seen and examined this patient.: Yes I have fully participated in the care of the patient.: Yes I have reviewed all pertinent clinical information, including history, physical exam and plan: Yes Notes (Text): I have seen and examined patient with the resident. This is 46 year old male with history of HTN, GERD who got admitted for evaluation of abdominal pain and constipation and found to have pelvic mass on CT scan. LFT's, CXR, CA19-9 and psa within normal limits. MRI pelvis revealed prostate mass. Patient underwent CT guided biopsy today by IR. Discussed with Dr Muñoz who will see the patient today. Awaiting Heme onc consult. Updated patient regarding the whole situation. Today he had 1 BM and had slight rectal pain which was new. Continues to complain of frequency and urgency of urination. Will discontinue IVF as he is eating properly. Dr Lizbeth Dumont
[2017-02-27 08:06] LABS: ADD MANUAL DIFF? NO
[2017-02-27 08:08] LABS: BASO # 0.01 K/mm3 (0.0-2.0); BASO % 0.2 % (0.0-3.0); EOS # 0.2 (0.0-0.7); EOS % 2.8 % (1.5-5.0); GRAN # 3.34 (1.4-6.5); GRAN % 58.1 % (50.0-68.0); HEMATOCRIT 43.1 % (42.0-52.0); LYMPH # 1.8 (1.2-3.4); LYMPH % 30.4 % (22.0-35.0); MEAN CELL VOLUME 86.7 fL (80.0-105.0); MEAN CORPUSCULAR HEMOGLOBIN 30.4 pg (25.0-35.0); MEAN PLATELET VOLUME 9.4 fl (7.0-11.0); MONO # 0.5 (0.1-0.6); MONO % 8.5 % (1.0-6.0); PLATELET COUNT 201 10^3/uL (120.0-450.0); RED CELL DISTRIBUTION WIDTH 13.7 % (11.5-14.5); WHITE BLOOD COUNT 5.8 10^3/ul (4.5-11.0)
[2017-02-27 08:21] LABS: INR 1.01 (0.93-1.08); PARTIAL THROMBOPLASTIN TIME 29.7 Seconds (23.7-30.8)
[2017-02-27 08:22] LABS: ALB/GLOB RATIO 1.1 (1.1-1.8); ALKALINE PHOSPHATASE 67 U/L (38-133); ALT/SGPT 50 U/L (7-56); AST/SGOT 36 U/L (15-59); BLOOD UREA NITROGEN 8 mg/dL (7-21); CARBON DIOXIDE 28 mmol/L (21-33); CHLORIDE 103 mmol/L (95-110); GFR AFRICAN-AMERICAN > 60; GLUCOSE,RANDOM 82 mg/dL (70-110); POTASSIUM 3.9 mmol/L (3.6-5.0); SODIUM 141 mmol/L (132-148); TOTAL PROTEIN 7.3 g/dL (5.8-8.3)
--- NOTE | 2017-02-27 08:51 | CP.PCM.PN ---
<Aicha Hull - Last Filed: 02/27/17 13:10> Subjective - Date & Time of Evaluation Date of Evaluation: 02/27/17 Time of Evaluation: 08:48 - Subjective Subjective: Gastroenterology Fellow/PGY4 Progress Note Patient notes resolved abdominal pain. Small formed stool yesterday. Tolerating clear liquids. A 12-point review of systems negative except for as above. Objective - Vital Signs/Intake and Output Vital Signs (last 24 hours): Temp Pulse Resp BP Pulse Ox 97.9 F 48 L 16 132/89 99 02/26/17 16:00 02/26/17 16:00 02/26/17 16:00 02/26/17 16:00 02/26/17 16:00 Intake and Output: 02/27/17 02/27/17 06:59 18:59 Intake Total 840 Balance 840 - Medications Medications: Current Medications Acetaminophen (Tylenol 325mg Tab) 650 mg PO Q6H PRN PRN Reason: Fever >100.4 F Amlodipine Besylate (Norvasc) 10 mg PO DAILY [facility] Last Admin: 02/26/17 10:14 Dose: 10 mg Docusate Sodium (Colace) 100 mg PO BID [facility] Last Admin: 02/26/17 17:30 Dose: 100 mg Sodium Chloride (Sodium Chloride 0.45%) 1,000 mls @ 80 mls/hr IV .[id number] [facility] Stop: 02/27/17 18:00 Last Admin: 02/26/17 17:00 Dose: 80 mls/hr Ondansetron HCl (Zofran Inj) 4 mg IVP Q4H PRN PRN Reason: Nausea/Vomiting Pantoprazole Sodium (Protonix Inj) 40 mg IVP DAILY [facility] Last Admin: 02/26/17 10:16 Dose: 40 mg Polyethylene Glycol (Miralax) 17 gm PO BID [facility] Last Admin: 02/26/17 17:30 Dose: 17 gm - Labs Labs: 02/27/17 07:36 02/27/17 07:36 PT 10.9 Seconds (9.9-11.8) 02/27/17 07:36 INR 1.01 (0.93-1.08) 02/27/17 07:36 APTT 29.7 Seconds (23.7-30.8) 02/27/17 07:36 - Constitutional Appears: Non-toxic, No Acute Distress - Head Exam Head Exam: ATRAUMATIC, NORMOCEPHALIC - Eye Exam Eye Exam: EOMI, PERRL Pupil Exam: PERRL. absent: Miosis, Mydriatic - ENT Exam ENT Exam: Mucous Membranes Moist, Normal Oropharynx - Neck Exam Neck Exam: Full ROM, Normal Inspection - Respiratory Exam Respiratory Exam: Clear to Ausculation Bilateral. absent: Rales, Rhonchi, Wheezes - Cardiovascular Exam Cardiovascular Exam: RRR, +S1, +S2. absent: Gallop, Rubs - GI/Abdominal Exam GI & Abdominal Exam: Soft, Normal Bowel Sounds. absent: Distended, Firm, Guarding, Rigid, Tenderness, Organomegaly, Rebound - Extremities Exam Extremities Exam: Full ROM. absent: Pedal Edema - Neurological Exam Neurological Exam: Alert, Awake - Psychiatric Exam Psychiatric exam: Normal Affect, Normal Mood - Skin Skin Exam: Dry, Intact, Normal Color, Warm Assessment and Plan - Assessment and Plan (Free Text) Assessment: 46 year old male with history of Hypertension and Constipation presenting with abdominal pain. CT A/P without contrast showed multiple liver lesions and a 9.4 x8.8cm extrinsic central pelvic mass causing severe narrowing and displacement of rectosigmoid junction. No prior EGD or colonoscopy. Plan: >MRI A/P with/without contrast- prostate 10.4x8.4cm mass with central necrotic area and multiple simple hepatic cysts >pending CT guided biopsy of prostate mass >follow up Urology and Hem/Onc recommendations >hepatic cysts- no further intervention, serial surveillance to monitor growth >normal PSA, CEA, CA 19-9, Hepatitis panel, AFP >clear liquids >will follow clinical course <Eron Bhatt - Last Filed: 02/27/17 16:04> Objective - Vital Signs/Intake and Output Vital Signs (last 24 hours): Temp Pulse Resp BP Pulse Ox 98.2 F 48 L 19 124/76 98 02/27/17 13:25 02/27/17 13:25 02/27/17 13:25 02/27/17 13:25 02/27/17 13:25 Intake and Output: 02/27/17 02/27/17 06:59 18:59 Intake Total 840 1540 Balance 840 1540 - Medications Medications: Current Medications Acetaminophen (Tylenol 325mg Tab) 650 mg PO Q6H PRN PRN Reason: Fever >100.4 F Amlodipine Besylate (Norvasc) 10 mg PO DAILY [facility] Last Admin: 02/27/17 10:08 Dose: 10 mg Docusate Sodium (Colace) 100 mg PO BID [facility] Last Admin: 02/27/17 10:08 Dose: 100 mg Sodium Chloride (Sodium Chloride 0.45%) 1,000 mls @ 80 mls/hr IV .[id number] [facility] Stop: 02/27/17 18:00 Last Admin: 02/26/17 17:00 Dose: 80 mls/hr Ondansetron HCl (Zofran Inj) 4 mg IVP Q4H PRN PRN Reason: Nausea/Vomiting Pantoprazole Sodium (Protonix Inj) 40 mg IVP DAILY [facility] Last Admin: 02/27/17 10:08 Dose: 40 mg Polyethylene Glycol (Miralax) 17 gm PO BID [facility] Last Admin: 02/27/17 10:08 Dose: 17 gm - Labs Labs: 02/27/17 07:36 02/27/17 07:36 PT 10.9 Seconds (9.9-11.8) 02/27/17 07:36 INR 1.01 (0.93-1.08) 02/27/17 07:36 APTT 29.7 Seconds (23.7-30.8) 02/27/17 07:36 Attending/Attestation - Attestation I have personally seen and examined this patient.: Yes I have fully participated in the care of the patient.: Yes I have reviewed all pertinent clinical information, including history, physical exam and plan: Yes Notes (Text): 02/27/17 16:02 46 year old male who presents with abdominal pain and constipation, found to have a pelvic mass and liver lesions. 1. Prostate mass 2. Hepatic cysts Plan: -MRI reviewed -large prostate mass, with mass effect on the colon -continue bowel regimen -underwent CT guided biopsy today -awaiting urology consultation -liver lesions are just cysts, rather than solid lesions, no further evaluation at this time
[2017-02-27] MEDS: POLYETHYLENE GLYCOL 3350 17 GM/Dose PACKET PO SCH ×2 (10:08→17:13)
[2017-02-27] MEDS ORDERED: Midazolam 2 MG/2 ML VIAL ONE (11:53)
--- NOTE | 2017-02-27 16:48 | CT ---
PROCEDURE: CT guided pelvic biopsy. HISTORY: 10 cm prostate mass. Evaluate for malignancy. PHYSICIAN(S): Mert Ley MD. TECHNIQUE: The relative risks and indications of the procedure were explained to the patient and consent obtained. The patient was placed prone on the CT scanner and preliminary images through the pelvis obtained. Conscious sedation and monitoring were provided throughout the procedure by a nurse. There is a well-circumscribed 10 cm prostate mass present.. A left trans gluteal approach was selected and the area prepped and draped in the usual sterile fashion. 1% Xylocaine was used to anesthetize the skin and soft tissues. A 17-gauge guiding needle was advanced into the 10 cm prostate mass. Its position was confirmed with CT. Using coaxial technique, multiple core biopsies were obtained. The postprocedure images show no evidence of significant hemorrhage. IMPRESSION: 1. CT-guided pelvic biopsy as described above.
[2017-02-27 17:31] VITALS: O2SAT 96
--- NOTE | 2017-02-27 21:04 | CP.PCM.CON ---
History of Present Illness - History of Present Illness History of Present Illness: 46 year old male with a history of HTN, admitted with abdominal pain, found to have a pelvic mass and liver lesions. The patient report to increasing abdominal discomfort radiating to his rectum which prompted him to come to the ER. A CT scan revealed a pelvic mass and liver lesions. This was followed by an MRI of the abdomen and pelvis which revealed liver cysts and a mass originating from the prostate. The patient has a normal PSA and underwent IR biopsy. Past medical history: HTN. Past surgical history: None Family history: Father had prostate cancer Social history: Denies tobacco, alcohol, and illicit drug use. Allergies: NKA Review of systems: All remaining review of systems including HEENT, cardiovascular, respiratory, gastrointestinal, genitoruinary, musculoskeletal, dermatologic, neurologic, and psychiatric are negative unless mentioned in the HPI. Past Patient History - Infectious Disease Hx of Infectious Diseases: None - Past Social History Smoking Status: Never Smoked - CARDIAC Hx Cardiac Disorders: Yes Hx Hypertension: Yes (non compliant) - PULMONARY Hx Respiratory Disorders: No - NEUROLOGICAL Hx Neurological Disorder: No - HEENT Hx HEENT Problems: No - RENAL Hx Chronic Kidney Disease: No - ENDOCRINE/METABOLIC Hx Endocrine Disorders: No - HEMATOLOGICAL/ONCOLOGICAL Hx Blood Disorders: No - INTEGUMENTARY Hx Dermatological Problems: No - MUSCULOSKELETAL/RHEUMATOLOGICAL Hx Falls: No - GASTROINTESTINAL Hx Gastrointestinal Disorders: Yes Hx Gastroesophageal Reflux: Yes - GENITOURINARY/GYNECOLOGICAL Hx Genitourinary Disorders: No - PSYCHIATRIC Hx Psychophysiologic Disorder: No - SURGICAL HISTORY Hx Surgeries: No - ANESTHESIA Hx Anesthesia: No Meds Allergies/Adverse Reactions: Allergies Allergy/AdvReac Type Severity Reaction Status Date / Time No Known Allergies Allergy Verified 02/25/17 14:27 - Medications Medications: Current Medications Acetaminophen (Tylenol 325mg Tab) 650 mg PO Q6H PRN PRN Reason: Fever >100.4 F Amlodipine Besylate (Norvasc) 10 mg PO DAILY [facility] Last Admin: 02/27/17 10:08 Dose: 10 mg Docusate Sodium (Colace) 100 mg PO BID [facility] Last Admin: 02/27/17 17:13 Dose: 100 mg Ondansetron HCl (Zofran Inj) 4 mg IVP Q4H PRN PRN Reason: Nausea/Vomiting Pantoprazole Sodium (Protonix Inj) 40 mg IVP DAILY [facility] Last Admin: 02/27/17 10:08 Dose: 40 mg Polyethylene Glycol (Miralax) 17 gm PO BID [facility] Last Admin: 02/27/17 17:13 Dose: 17 gm Physical Exam - Head Exam Head Exam: ATRAUMATIC - Eye Exam Eye Exam: Normal appearance - ENT Exam ENT Exam: Mucous Membranes Dry - Respiratory Exam Respiratory Exam: NORMAL BREATHING PATTERN - Cardiovascular Exam Cardiovascular Exam: +S1, +S2 - GI/Abdominal Exam GI & Abdominal Exam: Normal Bowel Sounds - Extremities Exam Extremities exam: Positive for: normal inspection - Neurological Exam Neurological exam: Oriented x3 - Psychiatric Exam Psychiatric exam: Normal Affect, Normal Mood - Skin Skin Exam: Warm Results - Vital Signs Recent Vital Signs: Last Vital Signs Temp 98.3 F 02/27/17 16:00 Pulse 54 L 02/27/17 16:00 Resp 19 02/27/17 16:00 BP 122/78 02/27/17 16:00 Pulse Ox 96 02/27/17 16:00 - Labs Result Diagrams: 02/27/17 07:36 02/27/17 07:36 Labs: Laboratory Results - last 24 hr 02/27/17 02/27/17 02/27/17 07:36 07:36 07:36 WBC 5.8 RBC 4.97 Hgb 15.1 Hct 43.1 MCV 86.7 MCH 30.4 MCHC 35.0 RDW 13.7 Plt Count 201 MPV 9.4 Gran % 58.1 Lymph % (Auto) 30.4 [place] % (Auto) 8.5 H Eos % (Auto) 2.8 Baso % (Auto) 0.2 Gran # 3.34 Lymph # 1.8 [place] # 0.5 Eos # 0.2 Baso # 0.01 PT 10.9 INR 1.01 APTT 29.7 Sodium 141 Potassium 3.9 Chloride 103 Carbon Dioxide 28 Anion Gap 14 BUN 8 Creatinine 1.1 Est GFR ( Amer) > 60 Est GFR (Non-Af Amer) > 60 Random Glucose 82 Calcium 9.0 Total Bilirubin 1.0 AST 36 ALT 50 Alkaline Phosphatase 67 Total Protein 7.3 Albumin 3.8 Globulin 3.5 Albumin/Globulin Ratio 1.1 Assessment & Plan (1) Prostate mass Assessment and Plan: s/p IR biopsy Urologic evaluation normal PSA, f/u pathology Thank you for this interesting consult. Status: Acute
[2017-02-28] MEDS ORDERED: Pantoprazole 40 mg EC Tab PO SCH (07:30)
[2017-02-28 07:46] LABS: ADD MANUAL DIFF? NO
[2017-02-28 07:48] LABS: GRAN % 62.6 % (50.0-68.0); HEMATOCRIT 41.9 % (42.0-52.0); LYMPH % 23.5 % (22.0-35.0); MEAN CELL VOLUME 86.4 fL (80.0-105.0); MEAN CORPUSCULAR HEMOGLOBIN 29.7 pg (25.0-35.0); MEAN CORPUSCULAR HGB CONC 34.4 g/dl (31.0-37.0); MEAN PLATELET VOLUME 9.4 fl (7.0-11.0); PLATELET COUNT 191 10^3/uL (120.0-450.0); RED CELL DISTRIBUTION WIDTH 13.5 % (11.5-14.5); WHITE BLOOD COUNT 5.4 10^3/ul (4.5-11.0)
[2017-02-28 07:49] LABS: BASO # 0.02 K/mm3 (0.0-2.0); BASO % 0.4 % (0.0-3.0); EOS # 0.1 (0.0-0.7); GRAN # 3.39 (1.4-6.5); LYMPH # 1.3 (1.2-3.4); MONO # 0.6 (0.1-0.6); MONO % 11.5 % (1.0-6.0)
[2017-02-28 08:06] LABS: ALB/GLOB RATIO 1.1 (1.1-1.8); ALKALINE PHOSPHATASE 68 U/L (38-133); ALT/SGPT 43 U/L (7-56); AST/SGOT 29 U/L (15-59); BILIRUBIN,TOTAL 0.8 mg/dL (0.2-1.3); BLOOD UREA NITROGEN 7 mg/dL (7-21); CALCIUM 8.9 mg/dL (8.4-10.5); CARBON DIOXIDE 28 mmol/L (21-33); CHLORIDE 104 mmol/L (95-110); GFR AFRICAN-AMERICAN > 60; GLUCOSE,RANDOM 82 mg/dL (70-110); POTASSIUM 4.3 mmol/L (3.6-5.0); SODIUM 140 mmol/L (132-148); TOTAL PROTEIN 6.9 g/dL (5.8-8.3)
[2017-02-28 08:54] VITALS: RESP 20
[2017-02-28] MEDS: POLYETHYLENE GLYCOL 3350 17 GM/Dose PACKET PO SCH ×2 (11:08→18:21)
--- NOTE | 2017-02-28 12:40 | CP.PCM.DIS ---
<Franny Mccallum - Last Filed: 02/28/17 12:37> Provider - Provider Date of Admission: 02/25/17 17:04 Attending physician: Lizbeth Dumont MD Primary care physician: Keri Pearl APN Consults: GI: Dr. Perez Urology: Dr. Muñoz Heme/onc: Dr. Mccall Radiology: Dr. Ley Time Spent in preparation of Discharge (in minutes): 45 Diagnosis - Discharge Diagnosis (1) HTN (hypertension) Status: Acute (2) Prostate mass Status: Chronic Hospital Course - Lab Results Lab Results: Most Recent Lab Values WBC 5.4 10^3/ul (4.5-11.0) 02/28/17 07:30 RBC 4.85 10^6/uL (3.5-6.1) 02/28/17 07:30 Hgb 14.4 gm/dL (14.0-18.0) 02/28/17 07:30 Hct 41.9 % (42.0-52.0) L 02/28/17 07:30 MCV 86.4 fL (80.0-105.0) 02/28/17 07:30 MCH 29.7 pg (25.0-35.0) 02/28/17 07:30 MCHC 34.4 g/dl (31.0-37.0) 02/28/17 07:30 RDW 13.5 % (11.5-14.5) 02/28/17 07:30 Plt Count 191 10^3/uL (120.0-450.0) 02/28/17 07:30 MPV 9.4 fl (7.0-11.0) 02/28/17 07:30 Gran % 62.6 % (50.0-68.0) 02/28/17 07:30 Lymph % (Auto) 23.5 % (22.0-35.0) 02/28/17 07:30 [place] % (Auto) 11.5 % (1.0-6.0) H 02/28/17 07:30 Eos % (Auto) 2.0 % (1.5-5.0) 02/28/17 07:30 Baso % (Auto) 0.4 % (0.0-3.0) 02/28/17 07:30 Gran # 3.39 (1.4-6.5) 02/28/17 07:30 Lymph # 1.3 (1.2-3.4) 02/28/17 07:30 Bacon # 0.6 (0.1-0.6) 02/28/17 07:30 Eos # 0.1 (0.0-0.7) 02/28/17 07:30 Baso # 0.02 K/mm3 (0.0-2.0) 02/28/17 07:30 PT 10.9 Seconds (9.9-11.8) 02/27/17 07:36 INR 1.01 (0.93-1.08) 02/27/17 07:36 APTT 29.7 Seconds (23.7-30.8) 02/27/17 07:36 Sodium 140 mmol/L (132-148) 02/28/17 07:30 Potassium 4.3 mmol/L (3.6-5.0) 02/28/17 07:30 Chloride 104 mmol/L (95-110) 02/28/17 07:30 Carbon Dioxide 28 mmol/L (21-33) 02/28/17 07:30 Anion Gap 12 (10-20) 02/28/17 07:30 BUN 7 mg/dL (7-21) 02/28/17 07:30 Creatinine 1.1 mg/dL (0.5-1.4) 02/28/17 07:30 Est GFR ( Amer) > 60 02/28/17 07:30 Est GFR (Non-Af Amer) > 60 02/28/17 07:30 Random Glucose 82 mg/dL (70-110) 02/28/17 07:30 Calcium 8.9 mg/dL (8.4-10.5) 02/28/17 07:30 Total Bilirubin 0.8 mg/dL (0.2-1.3) 02/28/17 07:30 AST 29 U/L (15-59) 02/28/17 07:30 ALT 43 U/L (7-56) 02/28/17 07:30 Alkaline Phosphatase 68 U/L (38-133) 02/28/17 07:30 Total Protein 6.9 g/dL (5.8-8.3) 02/28/17 07:30 Albumin 3.6 g/dL (3.0-4.8) 02/28/17 07:30 Globulin 3.3 gm/dL 02/28/17 07:30 Albumin/Globulin Ratio 1.1 (1.1-1.8) 02/28/17 07:30 Lipase 119 U/L (23-300) 02/25/17 14:50 Alpha Fetoprotein 2.7 ng/mL (0.0-7.5) 02/26/17 Unknown Carcinoembryonic Ag 2.0 ng/mL (0.0-3.0) 02/26/17 07:30 CA 19-9 Antigen 4.9 U/mL (0-37) 02/26/17 07:30 Prostate Specific Ag 1.7 ng/mL (0.00-2.5) 02/25/17 14:50 Urine Color Yellow (YELLOW) 02/25/17 14:50 Urine Appearance Clear (CLEAR) 02/25/17 14:50 Urine pH 6.0 (4.7-8.0) 02/25/17 14:50 Ur Specific [place] 1.020 (1.005-1.035) 02/25/17 14:50 Urine Protein Negative mg/dL (<30 mg/dL) 02/25/17 14:50 Urine Glucose (UA) Negative mg/dL (NEGATIVE) 02/25/17 14:50 Urine Ketones Negative mg/dL (NEGATIVE) 02/25/17 14:50 Urine Blood Negative (NEGATIVE) 02/25/17 14:50 Urine Nitrate Negative (NEGATIVE) 02/25/17 14:50 Urine Bilirubin Negative (NEGATIVE) 02/25/17 14:50 Urine Urobilinogen 0.2 E.U./dL (<1 E.U./dL) 02/25/17 14:50 Ur Leukocyte Esterase Negative Young/uL (NEGATIVE) 02/25/17 14:50 Hepatitis A IgM Ab Negative (NEGATIVE) 02/26/17 10:39 Hep Bs Antigen Negative (NEGATIVE) 02/26/17 10:39 Hep B Core IgM Ab Negative (NEGATIVE) 02/26/17 10:39 Hepatitis C Antibody Negative (NEGATIVE) 02/26/17 10:39 - Hospital Course Hospital Course: 46 year old male with past medical history of HTN and GERD presents to ED with abdominal fullness and constipation that started this morning. Patient states that he woke up this morning felt a fullness in his suprapupic and lower abdomen. Patient tried to have a BM this morning but was unable. He passed some mucousy discharge but no stool. Patient also tried an enema but only had very little water stool come out. Patient states that he has regular bowel movements. For last couple of months, he has been going every other day. Patient's last bowel movement was 2 days ago, normal in nature. He is passing gas. Patient denies having any dysuria or hematuria. Patient does c/o of increased urinary frequency and nocturia. Abd/pelvis Ct done in ED showed a 9.4x8.8 cm central deep pelvic mass with internal necrosis. Pt denies having any CP, SOB, abd pain, N/V, weight changes, fatigue. Full report of CT on admission showed 9.4x8.8 cm central deep pelvic mass with internal necrosis, mass effect upon sigmoid colon displaced to right with luminal narrowing with abundant stool in proximal sigmoid, and hepatic hypodensities representing cysts. MRI of abdomen/ pelvis showed large mass arising from prostate and simple hepatic cyst. Interventional radiologist was consulted and patient had CT guided biopsy of prostate, results pending. Heme/ onc was consulted and recommended outpatient follow up for biopsy result. During hospital stay, patient was also found to be hypertensive. He was started on Norvasc which controlled the blood pressure. Pt is to follow up with PMD upon discharge. Pt is encouraged to diet and exercise and maintain a low sodium diet. Pt is to follow up with Wetland Scientist/oncologist, Dr. Mccall upon discharge. Pt is to follow up with Urologist, Dr. Muñoz upon discharge. Patient is discharged with the following medications: Norvasc 10 mg PO QD #30, Colace 100 mg PO BID #60. Medication will be delivered to patient before discharge. Please see MAR for full details. - Date & Time of H&P Date of H&P: 02/28/17 Time of H&P: 12:40 Discharge Exam - Head Exam Head Exam: ATRAUMATIC - Eye Exam Eye Exam: EOMI - ENT Exam ENT Exam: Mucous Membranes Moist - Respiratory Exam Respiratory Exam: Clear to PA & Lateral, NORMAL BREATHING PATTERN. absent: Rales, Rhonchi, Wheezes - Cardiovascular Exam Cardiovascular Exam: REGULAR RHYTHM, +S1, +S2. absent: Diastolic murmur, Gallop , Rubs, Systolic Murmur - GI/Abdominal Exam GI & Abdominal Exam: Normal Bowel Sounds, Unremarkable. absent: Diminished Bowel Sounds, Distended, Firm, Guarding, Soft - Extremities Exam Additional comments: no edema or tenderness - Neurological Exam Neurological exam: Alert, Oriented x3 - Psychiatric Exam Psychiatric exam: Normal Affect, Normal Mood - Skin Skin Exam: Dry, Intact, Normal Color, Warm Discharge Plan - Discharge Medications Prescriptions: amLODIPine [Norvasc] 10 mg PO DAILY #30 tab - Follow Up Plan Condition: GOOD Disposition: HOME/ ROUTINE Instructions: Pneumococcal Vaccine for Adults (DC), Heart Healthy Diet (DC), Cigarette Smoking and Your Health (GEN), Chronic Hypertension (DC), Low Sodium Diet (DC) Additional Instructions: Pt is to follow up with PMD upon discharge. Pt is encouraged to diet and exercise and maintain a low sodium diet. Pt is to follow up with Wetland Scientist/oncologist, Dr. Mccall upon discharge. Pt is to follow up with Urologist, Dr. Muñoz upon discharge. Patient is discharged with the following medications: Norvasc 10 mg PO QD #30, Colace 100 mg PO BID #60. Medication will be delivered to patient before discharge. Referrals: Keri Pearl APN [Primary Care Provider] - Marlon Mccall MD [Staff Provider] - Shad Muñoz MD [Staff Provider] - <Lizbeth Dumont - Last Filed: 03/01/17 12:28> Provider - Provider Date of Admission: 02/25/17 17:04 Attending physician: Lizbeth Dumont MD Primary care physician: Keri Pearl [facility] Hospital Course - Lab Results Lab Results: Most Recent Lab Values WBC 5.4 10^3/ul (4.5-11.0) 02/28/17 07:30 RBC 4.85 10^6/uL (3.5-6.1) 02/28/17 07:30 Hgb 14.4 gm/dL (14.0-18.0) 02/28/17 07:30 Hct 41.9 % (42.0-52.0) L 02/28/17 07:30 MCV 86.4 fL (80.0-105.0) 02/28/17 07:30 MCH 29.7 pg (25.0-35.0) 02/28/17 07:30 MCHC 34.4 g/dl (31.0-37.0) 02/28/17 07:30 RDW 13.5 % (11.5-14.5) 02/28/17 07:30 Plt Count 191 10^3/uL (120.0-450.0) 02/28/17 07:30 MPV 9.4 fl (7.0-11.0) 02/28/17 07:30 Gran % 62.6 % (50.0-68.0) 02/28/17 07:30 Lymph % (Auto) 23.5 % (22.0-35.0) 02/28/17 07:30 [place] % (Auto) 11.5 % (1.0-6.0) H 02/28/17 07:30 Eos % (Auto) 2.0 % (1.5-5.0) 02/28/17 07:30 Baso % (Auto) 0.4 % (0.0-3.0) 02/28/17 07:30 Gran # 3.39 (1.4-6.5) 02/28/17 07:30 Lymph # 1.3 (1.2-3.4) 02/28/17 07:30 [place] # 0.6 (0.1-0.6) 02/28/17 07:30 Eos # 0.1 (0.0-0.7) 02/28/17 07:30 Baso # 0.02 K/mm3 (0.0-2.0) 02/28/17 07:30 PT 10.9 Seconds (9.9-11.8) 02/27/17 07:36 INR 1.01 (0.93-1.08) 02/27/17 07:36 APTT 29.7 Seconds (23.7-30.8) 02/27/17 07:36 Sodium 140 mmol/L (132-148) 02/28/17 07:30 Potassium 4.3 mmol/L (3.6-5.0) 02/28/17 07:30 Chloride 104 mmol/L (95-110) 02/28/17 07:30 Carbon Dioxide 28 mmol/L (21-33) 02/28/17 07:30 Anion Gap 12 (10-20) 02/28/17 07:30 BUN 7 mg/dL (7-21) 02/28/17 07:30 Creatinine 1.1 mg/dL (0.5-1.4) 02/28/17 07:30 Est GFR ( Amer) > 60 02/28/17 07:30 Est GFR (Non-Af Amer) > 60 02/28/17 07:30 Random Glucose 82 mg/dL (70-110) 02/28/17 07:30 Calcium 8.9 mg/dL (8.4-10.5) 02/28/17 07:30 Total Bilirubin 0.8 mg/dL (0.2-1.3) 02/28/17 07:30 AST 29 U/L (15-59) 02/28/17 07:30 ALT 43 U/L (7-56) 02/28/17 07:30 Alkaline Phosphatase 68 U/L (38-133) 02/28/17 07:30 Total Protein 6.9 g/dL (5.8-8.3) 02/28/17 07:30 Albumin 3.6 g/dL (3.0-4.8) 02/28/17 07:30 Globulin 3.3 gm/dL 02/28/17 07:30 Albumin/Globulin Ratio 1.1 (1.1-1.8) 02/28/17 07:30 Lipase 119 U/L (23-300) 02/25/17 14:50 Alpha Fetoprotein 2.7 ng/mL (0.0-7.5) 02/26/17 Unknown Carcinoembryonic Ag 2.0 ng/mL (0.0-3.0) 02/26/17 07:30 CA 19-9 Antigen 4.9 U/mL (0-37) 02/26/17 07:30 Prostate Specific Ag 1.7 ng/mL (0.00-2.5) 02/25/17 14:50 Urine Color Yellow (YELLOW) 02/25/17 14:50 Urine Appearance Clear (CLEAR) 02/25/17 14:50 Urine pH 6.0 (4.7-8.0) 02/25/17 14:50 Ur Specific [place] 1.020 (1.005-1.035) 02/25/17 14:50 Urine Protein Negative mg/dL (<30 mg/dL) 02/25/17 14:50 Urine Glucose (UA) Negative mg/dL (NEGATIVE) 02/25/17 14:50 Urine Ketones Negative mg/dL (NEGATIVE) 02/25/17 14:50 Urine Blood Negative (NEGATIVE) 02/25/17 14:50 Urine Nitrate Negative (NEGATIVE) 02/25/17 14:50 Urine Bilirubin Negative (NEGATIVE) 02/25/17 14:50 Urine Urobilinogen 0.2 E.U./dL (<1 E.U./dL) 02/25/17 14:50 Ur Leukocyte Esterase Negative [place]/uL (NEGATIVE) 02/25/17 14:50 Hepatitis A IgM Ab Negative (NEGATIVE) 02/26/17 10:39 Hep Bs Antigen Negative (NEGATIVE) 02/26/17 10:39 Hep B Core IgM Ab Negative (NEGATIVE) 02/26/17 10:39 Hepatitis C Antibody Negative (NEGATIVE) 02/26/17 10:39 Attending/Attestation - Attestation I have personally seen and examined this patient.: Yes I have fully participated in the care of the patient.: Yes I have reviewed all pertinent clinical information, including history, physical exam and plan: Yes Notes (Text): I have seen and examined patient with the resident. This is 46 year old male with history of HTN, GERD who got admitted for evaluation of abdominal pain and constipation and found to have pelvic mass on CT scan. LFT's, CXR, CA19-9 and psa within normal limits. MRI pelvis revealed prostate mass. Patient underwent CT guided biopsy by IR. Patient was seen by GI, urologist and oncologist. Patient was given all the information. He was advised to follow up with urologist and oncologist as an outpatient for biopsy results. GI recommended elective colonoscopy in 4-6 weeks. Patient denies any complaints. Dr Lizbeth Dumont
[2017-02-28 16:24] VITALS: BP 137/65; PULSE 66; TEMP 98.3
--- NOTE | 2017-02-28 16:35 | CP.PCM.PN ---
<Aicha Hull - Last Filed: 02/28/17 16:35> Subjective - Date & Time of Evaluation Date of Evaluation: 02/28/17 Time of Evaluation: 16:35 - Subjective Subjective: Gastroenterology Fellow/PGY4 Progress Note Patient notes resolved abdominal pain. Notes bowel movement yesterday. Tolerating clear liquids. A 12-point review of systems negative except for as above. Objective - Vital Signs/Intake and Output Vital Signs (last 24 hours): Temp Pulse Resp BP Pulse Ox 98.3 F 66 20 137/65 96 02/28/17 16:00 02/28/17 16:00 02/28/17 16:00 02/28/17 16:00 02/28/17 16:00 Intake and Output: 02/28/17 02/28/17 06:59 18:59 Intake Total 720 1680 Balance 720 1680 - Medications Medications: Current Medications Acetaminophen (Tylenol 325mg Tab) 650 mg PO Q6H PRN PRN Reason: Fever >100.4 F Amlodipine Besylate (Norvasc) 10 mg PO DAILY [facility] Last Admin: 02/28/17 11:08 Dose: 10 mg Docusate Sodium (Colace) 100 mg PO BID [facility] Last Admin: 02/28/17 11:08 Dose: 100 mg Ondansetron HCl (Zofran Inj) 4 mg IVP Q4H PRN PRN Reason: Nausea/Vomiting Pantoprazole Sodium (Protonix Ec Tab) 40 mg PO ACB [facility] Last Admin: 02/28/17 08:52 Dose: 40 mg Polyethylene Glycol (Miralax) 17 gm PO BID [facility] Last Admin: 02/28/17 11:08 Dose: 17 gm - Labs Labs: 02/28/17 07:30 02/28/17 07:30 PT 10.9 Seconds (9.9-11.8) 02/27/17 07:36 INR 1.01 (0.93-1.08) 02/27/17 07:36 APTT 29.7 Seconds (23.7-30.8) 02/27/17 07:36 - Constitutional Appears: Non-toxic, No Acute Distress - Head Exam Head Exam: ATRAUMATIC, NORMOCEPHALIC - Eye Exam Eye Exam: EOMI, PERRL Pupil Exam: PERRL. absent: Miosis, Mydriatic - ENT Exam ENT Exam: Mucous Membranes Moist, Normal Oropharynx - Neck Exam Neck Exam: Full ROM, Normal Inspection - Respiratory Exam Respiratory Exam: Clear to Ausculation Bilateral. absent: Rales, Rhonchi, Wheezes - Cardiovascular Exam Cardiovascular Exam: RRR, +S1, +S2. absent: Gallop, Rubs - GI/Abdominal Exam GI & Abdominal Exam: Soft, Normal Bowel Sounds. absent: Distended, Firm, Guarding, Rigid, Tenderness, Organomegaly, Rebound - Extremities Exam Extremities Exam: Full ROM. absent: Pedal Edema - Neurological Exam Neurological Exam: Alert, Awake - Psychiatric Exam Psychiatric exam: Normal Affect, Normal Mood - Skin Skin Exam: Dry, Intact, Normal Color, Warm Assessment and Plan - Assessment and Plan (Free Text) Assessment: 46 year old male with history of Hypertension and Constipation presenting with abdominal pain. CT A/P without contrast showed multiple liver lesions and a 9.4 x8.8cm extrinsic central pelvic mass causing severe narrowing and displacement of rectosigmoid junction. MRI A/P with/without contrast- prostate 10.4x8.4cm mass with central necrotic area and multiple simple hepatic cysts No prior EGD or colonoscopy. Plan: >pending pathology of CT guided prostate mass biopsy >Urology and Hem/Onc outpatient follow ups >hepatic cysts- no further interventions >tolerating liquids >continue Miralax daily >outpatient follow up in 3 to 4 weeks to follow up ongoing prostate work up and scheduling of elective colonoscopy >thank you for opportunity to participate in the care of this patient <Danielle Choudhary MD - Last Filed: 02/28/17 17:58> Objective - Vital Signs/Intake and Output Vital Signs (last 24 hours): Temp Pulse Resp BP Pulse Ox 98.3 F 66 20 137/65 96 02/28/17 16:00 02/28/17 16:00 02/28/17 16:00 02/28/17 16:00 02/28/17 16:00 Intake and Output: 02/28/17 02/28/17 06:59 18:59 Intake Total 720 1680 Balance 720 1680 - Medications Medications: Current Medications Acetaminophen (Tylenol 325mg Tab) 650 mg PO Q6H PRN PRN Reason: Fever >100.4 F Amlodipine Besylate (Norvasc) 10 mg PO DAILY [facility] Last Admin: 02/28/17 11:08 Dose: 10 mg Docusate Sodium (Colace) 100 mg PO BID [facility] Last Admin: 02/28/17 11:08 Dose: 100 mg Ondansetron HCl (Zofran Inj) 4 mg IVP Q4H PRN PRN Reason: Nausea/Vomiting Pantoprazole Sodium (Protonix Ec Tab) 40 mg PO ACB [facility] Last Admin: 02/28/17 08:52 Dose: 40 mg Polyethylene Glycol (Miralax) 17 gm PO BID [facility] Last Admin: 02/28/17 11:08 Dose: 17 gm - Labs Labs: 02/28/17 07:30 02/28/17 07:30 PT 10.9 Seconds (9.9-11.8) 02/27/17 07:36 INR 1.01 (0.93-1.08) 02/27/17 07:36 APTT 29.7 Seconds (23.7-30.8) 02/27/17 07:36 Attending/Attestation - Attestation I have personally seen and examined this patient.: Yes I have fully participated in the care of the patient.: Yes I have reviewed all pertinent clinical information, including history, physical exam and plan: Yes Notes (Text): 02/28/17 17:57 Patient seen with GI fellow. This is a 46 year old male with history of Hypertension and Constipation presenting with abdominal pain. CT A/P without contrast showed multiple liver lesions and a 9.4 x8.8cm extrinsic central pelvic mass causing severe narrowing and displacement of rectosigmoid junction. MRI A/P with/without contrast- prostate 10.4x8.4cm mass with central necrotic area and multiple simple hepatic cysts s/p prostate biopsy pending pathology. Continue bowel regimen. Rest of plan as oncology. Thank you for opportunity to participate in the care of this patient
--- NOTE | 2017-03-05 11:39 | CP.PCM.PN ---
<Franny Mccallum - Last Filed: 03/05/17 11:37> Subjective - Date & Time of Evaluation Date of Evaluation: 03/05/17 Time of Evaluation: 11:37 - Subjective Subjective: I called patient and discussed the biopsy results with him. He stated that he has an appointment with Dr. Mccall today in his office. Objective - Vital Signs/Intake and Output Vital Signs (last 24 hours): Temp Pulse Resp BP Pulse Ox 98.3 F 66 20 137/65 96 02/28/17 16:00 02/28/17 16:00 02/28/17 16:00 02/28/17 16:00 02/28/17 16:00 - Labs Labs: 02/28/17 07:30 02/28/17 07:30 PT 10.9 Seconds (9.9-11.8) 02/27/17 07:36 INR 1.01 (0.93-1.08) 02/27/17 07:36 APTT 29.7 Seconds (23.7-30.8) 02/27/17 07:36 Assessment and Plan (1) HTN (hypertension) Status: Acute (2) Prostate mass Status: Chronic <Aster Rosa - Last Filed: 03/05/17 17:20> Objective - Vital Signs/Intake and Output Vital Signs (last 24 hours): Temp Pulse Resp BP Pulse Ox 98.3 F 66 20 137/65 96 02/28/17 16:00 02/28/17 16:00 02/28/17 16:00 02/28/17 16:00 02/28/17 16:00 - Labs Labs: 02/28/17 07:30 02/28/17 07:30 PT 10.9 Seconds (9.9-11.8) 02/27/17 07:36 INR 1.01 (0.93-1.08) 02/27/17 07:36 APTT 29.7 Seconds (23.7-30.8) 02/27/17 07:36 Attending/Attestation - Attestation I have personally seen and examined this patient.: Yes I have fully participated in the care of the patient.: Yes I have reviewed all pertinent clinical information, including history, physical exam and plan: Yes Notes (Text): 03/05/17 17:19 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 Case discussed with pathologist in detail. Patient will follow-up with Dr. Mccall oncology. The diagnosis discussed with oncologidt in detail. Further treatment plan per Dr. Mccall.
== END 2017-02-28 20:56 | disposition home or self-care (01) | DRG 239 ==
LOC: ED 14:21 → ERH 17:04 → 5RSO 17:51
PROVIDERS: ADMIT Internal Medicine; ATTEND Hospitalist
PROC: 0VB03ZX Excision of Prostate, Percutaneous Approach, Diagnostic (ICD-10-PCS; principal; 2017-02-27 10:45)
DX: C49.A9 Gastrointestinal stromal tumor of other sites (principal); K76.89 Other specified diseases of liver; I10 Essential (primary) hypertension; K21.9 Gastro-esophageal reflux disease without esophagitis; K59.00 Constipation, unspecified

== ENCOUNTER 2017-03-26 18:15 | Emergency (ER) | payer MEDICAID ==
[2017-03-26 18:18] VITALS: BMI 32.5
[2017-03-26 18:21] VITALS: TEMP 98.1
--- NOTE | 2017-03-26 19:44 | ED PDOC ---
Arrival/HPI - General Chief Complaint: High Blood Pressure Time Seen by Provider: 03/26/17 18:47 Historian: Patient - History of Present Illness Narrative History of Present Illness (Text): 03/26/17 19:41 A 46 year old male, whose past medical history includes hypertension, gastrointestinal stromal tumor and GERD, was sent into the emergency department by oncologist for high blood pressure. Patient reports he is not compliant with his blood pressure medication because it causes ankle swelling. Patient is currently asymptomatic and denies any pain or discomfort. Patient denies any fever, chills, nausea, vomiting, diarrhea, abdominal pain, chest pain, shortness of breath or any other complaints. Oncologist: Dr. Mccall Time/Duration: Prior to Arrival Symptom Course: Improving Quality: Other Context: Other Past Medical History - Provider Review Nursing Documentation Reviewed: Yes - Infectious Disease Hx of Infectious Diseases: None - Cardiac Hx Cardiac Disorders: Yes Hx Hypertension: Yes (non compliant) - Pulmonary Hx Respiratory Disorders: No - Neurological Hx Neurological Disorder: No - HEENT Hx HEENT Disorder: No - Renal Hx Renal Disorder: No - Endocrine/Metabolic Hx Endocrine Disorders: No - Hematological/Oncological Hx Cancer: Yes (Prostate) - Integumentary Hx Dermatological Disorder: No - Musculoskeletal/Rheumatological Hx Falls: No - Gastrointestinal Hx Gastrointestinal Disorders: Yes Hx Gastroesophageal Reflux: Yes - Genitourinary/Gynecological Hx Genitourinary Disorders: No - Psychiatric Hx Psychophysiologic Disorder: No Hx Substance Use: No - Anesthesia Hx Anesthesia: No Family/Social History - Physician Review Nursing Documentation Reviewed: Yes Family/Social History: No Known Family HX Smoking Status: Never Smoked Hx Alcohol Use: No Hx Substance Use: No Allergies/Home Meds Allergies/Adverse Reactions: Allergies No Known Allergies Allergy (Verified 03/26/17 18:18) Home Medications: Home Meds Medication Instructions Recorded Confirmed Omeprazole Magnesium [Prilosec] 10 mg PO DAILY 11/06/16 03/26/17 Tamsulosin [Flomax] 0.4 mg PO DAILY 03/26/17 03/26/17 Review of Systems - Physician Review All systems were reviewed & negative as marked: Yes - Review of Systems Constitutional: Normal, Other (High blood pressure). absent: Fevers, Night Sweats Respiratory: absent: SOB Cardiovascular: absent: Chest Pain Gastrointestinal: absent: Abdominal Pain, Diarrhea, Nausea, Vomiting Physical Exam Vital Signs Reviewed: Yes Vital Signs Temp Pulse Pulse Resp BP BP Pulse Ox 03/26/17 20:54 54 L 16 135/76 98 03/26/17 20:20 58 L 16 136/78 99 03/26/17 20:01 58 L 18 141/94 H 100 03/26/17 18:30 60 16 161/96 H 100 03/26/17 18:20 98.1 F 55 L 54 L 17 158/107 H 161/96 H 99 Temperature: Afebrile Blood Pressure: Hypertensive Pulse: Bradycardic Respiratory Rate: Normal Appearance: Positive for: Well-Appearing, Non-Toxic, Comfortable Pain Distress: None Mental Status: Positive for: Alert and Oriented X 3 - Systems Exam Head: Present: Atraumatic, Normocephalic Pupils: Present: PERRL Extroacular Muscles: Present: EOMI Conjunctiva: Present: Normal Mouth: Present: Moist Mucous Membranes Neck: Present: Normal Range of Motion Respiratory/Chest: Present: Clear to Auscultation, Good Air Exchange. No: Respiratory Distress, Accessory Muscle Use Cardiovascular: Present: Regular Rate and Rhythm, Normal S1, S2. No: Murmurs Abdomen: Present: Normal Bowel Sounds. No: Tenderness, Distention, Peritoneal Signs Back: Present: Normal Inspection Upper Extremity: Present: Normal Inspection. No: Cyanosis, Edema Lower Extremity: Present: Normal Inspection. No: Edema Neurological: Present: GCS=15, CN II-XII Intact, Speech Normal Skin: Present: Warm, Dry, Normal Color. No: Rashes Psychiatric: Present: Alert, Oriented x 3, Normal Insight, Normal Concentration Medical Decision Making ED Course and Treatment: 03/26/17 19:41 Impression: A 46 year old male sent in for high blood pressure. Patient is asymptomatic and denies any complaints. Physical exam unremarkable. Blood pressure improved. DDx: Hypertension Plan: -- EKG -- Labs -- Apresoline -- Reassess and disposition Progress Notes: EKG shows sinus bradycardia at 49 BPM with t-wave inversions in leads III and avf, with no changes from prior on 02/25/17. Interpreted by me. 03/26/17 21:03 Patient continues to be asymptomatic. Instructed to follow up with his primary care doctor in 1-2days. Advised to return to the ED if symptoms worsen or any other concern. - Lab Interpretations Lab Results: 03/26/17 19:40 03/26/17 19:40 Lab Results 03/26/17 19:40: Sodium 139, Potassium 3.7, Chloride 103, Carbon Dioxide 28, Anion Gap 12, BUN 12, Creatinine 0.9, Est GFR ( Amer) > 60, Est GFR (Non- Af Amer) > 60, Random Glucose 82, Calcium 9.7, Magnesium 2.1 03/26/17 19:40: WBC 5.9, RBC 5.49, Hgb 16.7, Hct 47.0, MCV 85.6, MCH 30.4, MCHC 35.5, RDW 13.6, Plt Count 219, MPV 9.4, Gran % 65.3, Lymph % (Auto) 25.2, [place] % (Auto) 7.3 H, Eos % (Auto) 2.0, Baso % (Auto) 0.2, Gran # 3.86, Lymph # 1.5, [place] # 0.4, Eos # 0.1, Baso # 0.01 I have reviewed the lab results: Yes Interpretation: All labs normal - Medication Orders Current Medication Orders: Discontinued Medications Hydralazine HCl (Apresoline) 10 mg IVP ONCE ONE Stop: 03/26/17 19:49 Last Admin: 03/26/17 20:01 Dose: 10 mg - Scribe Statement The provider has reviewed the documentation as recorded by the Juan Blancas Provider Scribe Attestation: All medical record entries made by the Susanibkasia were at my direction and personally dictated by me. I have reviewed the chart and agree that the record accurately reflects my personal performance of the history, physical exam, medical decision making, and the department course for this patient. I have also personally directed, reviewed, and agree with the discharge instructions and disposition. Disposition/Present on Arrival - Present on Arrival Any Indicators Present on Arrival: No History of DVT/PE: No History of Uncontrolled Diabetes: No Urinary Catheter: No History of Decub. Ulcer: No History Surgical Site Infection Following: None - Disposition Have Diagnosis and Disposition been Completed?: Yes Diagnosis: HTN (hypertension) Disposition: HOME/ ROUTINE Disposition Time: 21:04 Patient Plan: Discharge Condition: IMPROVED Discharge Instructions (ExitCare): Hypertension (ED) Additional Instructions: Michael, thank you for letting us take care of you today. Your provider was Dr. Panda. You were treated for Hypertension. The emergency medical care you received today was directed at your acute symptoms. If you were prescribed any medication, please fill it and take as directed. It may take several days for your symptoms to resolve. Return to the Emergency Department if your symptoms worsen, do not improve, or if you have any other problems. Please contact your doctor or call one of the physicians/clinics you have been referred to that are listed on the Patient Visit Information form that is included in your discharge packet. Bring any paperwork you were given at discharge with you along with any medications you are taking to your follow up visit. Our treatment cannot replace ongoing medical care by a primary care provider (PCP) outside of the emergency department. Thank you for allowing the [facility] team to be part of your care today. If you had an X-Ray or CT scan: A Radiologist will review the ED reading if any change in treatment is needed we will contact you. If you had a blood, urine, or wound culture: It will take several days for the results, if any change in treatment is needed we will contact you. If you had an STI test: It will take 48 hours for the results. Please call after 1 week if you have not heard back. Prescriptions: amLODIPine [Norvasc] 10 mg PO DAILY #30 tab Referrals: Mario Mccall MD [Staff Provider] - Follow up with primary Keri Pearl APN [Primary Care Provider] - Follow up with primary Forms: [employer] (Turkmen), WORK NOTE
[2017-03-26 19:55] LABS: ADD MANUAL DIFF? NO
[2017-03-26 20:00] LABS: BASO # 0.01 K/mm3 (0.0-2.0); BASO % 0.2 % (0.0-3.0); EOS # 0.1 (0.0-0.7); GRAN # 3.86 (1.4-6.5); GRAN % 65.3 % (50.0-68.0); LYMPH # 1.5 (1.2-3.4); LYMPH % 25.2 % (22.0-35.0); MEAN CELL VOLUME 85.6 fL (80.0-105.0); MEAN CORPUSCULAR HEMOGLOBIN 30.4 pg (25.0-35.0); MEAN CORPUSCULAR HGB CONC 35.5 g/dl (31.0-37.0); MEAN PLATELET VOLUME 9.4 fl (7.0-11.0); MONO # 0.4 (0.1-0.6); MONO % 7.3 % (1.0-6.0); PLATELET COUNT 219 10^3/uL (120.0-450.0); RED CELL DISTRIBUTION WIDTH 13.6 % (11.5-14.5); WHITE BLOOD COUNT 5.9 10^3/ul (4.5-11.0)
[2017-03-26 20:11] LABS: BLOOD UREA NITROGEN 12 mg/dL (7-21); CALCIUM 9.7 mg/dL (8.4-10.5); CARBON DIOXIDE 28 mmol/L (21-33); CHLORIDE 103 mmol/L (98-107); GFR AFRICAN-AMERICAN > 60; GLUCOSE,RANDOM 82 mg/dL (70-110); MAGNESIUM 2.1 mg/dL (1.7-2.2); POTASSIUM 3.7 mmol/L (3.6-5.0); SODIUM 139 mmol/L (132-148)
[2017-03-26 20:21] VITALS: RESP 16
[2017-03-26 20:55] VITALS: BP 135/76; PULSE 54; O2SAT 98
--- NOTE | 2017-03-27 12:43 | CARD ---
APPROVED REPORT EKG Measurement Heart [id number] <Conclusion> Marked sinus bradycardia with sinus arrhythmia Abnormal ECG
== END 2017-03-26 20:55 | disposition home or self-care (01) ==
LOC: ED 18:15
DX: I10 Essential (primary) hypertension (principal); K21.9 Gastro-esophageal reflux disease without esophagitis; Z91.19 Patient's noncompliance with other medical treatment and regimen
CPT/HCPCS: 80048; 83735; 85025; 93005; 96374; 99285; J0360